=== PATIENT | female | born 1955 | race Caucasian/White ===

== ENCOUNTER → 2018-10-08 | Outpatient (CLI) | payer MEDICARE, OTHER ==
[~2018-10-08] MED LIST: ATOR10; ATOR40TA PO; CLIN150 PO; CLON.1TP TP; ESCI10; ESTR2; FLUO10 PO; LOSHYD; METF500 PO; METR500 PO; NALT50 PO; PROACE100 PO; PROM25S PR; RXPROM25S PR; SULTRIDS PO; TRIA80TC TOP; VENL75ER; ZOLP10 PO
== END | disposition home or self-care (01) ==
LOC: LAB SHORT 09:39 → LAB EV 09:39
DX: N39.0 Urinary tract infection, site not specified (principal)
CPT/HCPCS: 87077; 87086; 87186

== ENCOUNTER → 2019-03-22 | Outpatient (CLI) | payer MEDICARE, OTHER | END | disposition home or self-care (01) | LOC: LAB EV 10:22 → LAB SHORT 10:22 | DX: N39.0 Urinary tract infection, site not specified (principal) | CPT/HCPCS: 87077; 87086; 87186 ==

== ENCOUNTER → 2021-01-15 | Outpatient (CLI) | payer MEDICARE ==
[2021-01-15 07:52] LABS: Source, Urine Clean Catch
[2021-01-15 11:48] LABS: Appearance, Urine Cloudy (Clear); Bilirubin, Urine Neg (Neg); Blood, Urine 2+ (Neg); Color, Urine Yellow (P-Yellow); Glucose Qualitative, Urine Neg (Neg); Ketones, Urine Neg (Neg); Leukocyte Esterase, Urine 3+ (Neg); Nitrite, Urine Pos (Neg); Protein, Urine 2+ (Neg); Urobilinogen, Urine NORM (Normal)
[2021-01-15 12:18] LABS: Bacteria Many /hpf; Squamous Epithelial Cells Not Seen /hpf (Few); White Blood Cells, Urine TNTC /hpf (0-5)
== END | disposition home or self-care (01) ==
LOC: OLS 07:50 → LAB SHORT 07:50
PROVIDERS: Nurse Practitioner
DX: R35.0 Frequency of micturition (principal)
CPT/HCPCS: 81001; 87077; 87086; 87186

== ENCOUNTER → 2021-08-30 | Outpatient (CLI) | payer MEDICARE ==
[~2021-08-30] MED LIST changes: +ASPI81CH PO; +BUDESONIDE EC3 M5 PO; +CEFDINIR300 M4; +CHOLP PO; +CLOP75 PO; +DULO60 PO; +ESCI20 PO; +EUTHYROX25 MC1 PO; +GLUCOPHAGE1000 M1 PO; +IMODIUM A-D2 M4 PO; +IRBESARTAN150 M3 PO; +METFORMIN; +OMEP20ER PO
== END | disposition home or self-care (01) ==
LOC: LAB SHORT 11:59
DX: N39.0 Urinary tract infection, site not specified (principal)
CPT/HCPCS: 87077; 87086; 87186

== ENCOUNTER 2021-09-14 12:24 | Emergency (ER) | payer MEDICARE ==
[~2021-09-14] VITALS: Ht 162.6 cm; Wt 74.8 kg
[~2021-09-14 12:24] MED LIST changes: -ASPI81CH PO; -BUDESONIDE EC3 M5 PO; -CEFDINIR300 M4; -CHOLP PO; -CLOP75 PO; -DULO60 PO; -ESCI20 PO; -EUTHYROX25 MC1 PO; -GLUCOPHAGE1000 M1 PO; -IMODIUM A-D2 M4 PO; -IRBESARTAN150 M3 PO; -METFORMIN; -OMEP20ER PO
[2021-09-14 12:58] LABS: BASOPHILS ABSOLUTE AUTO 0.07 K/mm3 (0.00-0.23); BASOPHILS PERCENT AUTO 1 % (0-2); EOSINOPHILS ABSOLUTE AUTO 0.18 K/mm3 (0.00-0.68); EOSINOPHILS PERCENT AUTO 1 % (0-6); Hemoglobin 12.9 g/dL (11.5-16.0); IMMATURE GRAN ABSOLUTE AUTO 0.04 K/mm3 (0.00-0.10); IMMATURE GRAN PERCENT AUTO 0 % (0-1); LYMPHOCYTES ABSOLUTE AUTO 4.48 K/mm3 (0.84-5.20); LYMPHOCYTES PERCENT AUTO 35 % (21-46); MONOCYTES ABSOLUTE AUTO 0.68 K/mm3 (0.16-1.47); MONOCYTES PERCENT AUTO 5 % (4-13); Mean Corpuscular HGB 31.7 pg (26.0-34.0); Mean Corpuscular HGB Conc 33.1 g/dL (31.5-36.5); Mean Corpuscular Volume 96 fL (80-100); Mean Platelet Volume 10.4 fL (9.1-12.4); NEUTROPHILS ABSOLUTE AUTO 7.38 K/mm3 (1.96-9.15); NEUTROPHILS PERCENT AUTO 58 % (41-73); Platelet Count 322 K/mm3 (150-400); RDW Coefficient Variation 13.9 % (11.7-14.2); RDW Standard Deviation 49.1 fL (35.1-46.3); Red Blood Cell Count 4.07 M/mm3 (3.80-5.20); White Blood Cell Count 12.83 K/mm3 (4.00-11.30)
[2021-09-14 13:18] LABS: Alanine Aminotransfer (ALT/SGP 22 U/L (12-78); Albumin, Blood 3.2 g/dL (3.4-5.0); Albumin/Globulin Ratio 0.9 (0.8-1.8); Alk Phos 48 U/L (50-136); Anion Gap 5 mmol/L (6-16); Aspartate Aminotrans (AST/SGOT 12 U/L (12-37); Bilirubin, Total 0.2 mg/dL (0.1-1.0); Blood Urea Nitrogen 11 mg/dL (8-24); Bun/Creatinine Ratio 14.9 (12.0-20.0); CO2, Blood 27 mmol/L (21-32); Chloride, Blood 105 mmol/L (98-108); Creatinine, Blood 0.74 mg/dL (0.40-1.00); Globulin, Blood 3.5 g/dL (2.2-4.0); Glomerular Filtration Rate >60 (60-); Glucose, Blood 131 mg/dL (70-99); Potassium, Blood 4.2 mmol/L (3.5-5.5); Sodium, Blood 137 mmol/L (136-145); Total Protein, Blood 6.7 g/dL (6.4-8.2)
[2021-09-14 16:00] LABS: Troponin I <0.015 ng/mL (0.000-0.040)
[2021-09-15] MEDS ORDERED: BUDESONIDE EC3 M5 PO ×2 (00:36)
[2021-09-15] MEDS ORDERED: IRBESARTAN150 M3 PO ×2 (00:37)
[2021-09-15] MEDS ORDERED: GLUCOPHAGE1000 M1 PO ×2 (00:38)
[2021-09-15] MEDS ORDERED: METFORMIN (00:39)
[2021-09-15] MEDS ORDERED: CEFDINIR300 M4 (00:40)
[2021-09-15] MEDS ORDERED: EUTHYROX25 MC1 PO ×2 (00:41)
[2021-09-15] MEDS ORDERED: IMODIUM A-D2 M4 PO ×2 (00:42)
[2021-09-15] MEDS ORDERED: OMEP20ER PO ×3 (00:43→01:17)
[2021-09-15] MEDS ORDERED: ESCI20 PO ×2 (00:44)
[2021-09-15] MEDS ORDERED: DULO60 PO ×2 (01:22)
[2021-09-15] MEDS ORDERED: CHOLP PO ×2 (13:34)
[2021-09-15] MEDS ORDERED: ATOR40TA PO ×2 (15:17)
[2021-09-15] MEDS ORDERED: ASPI81CH PO ×2 (15:17)
[2021-09-15] MEDS ORDERED: CLOP75 PO ×2 (15:18)
== END 2021-09-14 16:55 | disposition home or self-care (01) ==
LOC: ER 12:24
PROVIDERS: Emergency Medicine
DX: G45.9 Transient cerebral ischemic attack, unspecified (principal); E11.9 Type 2 diabetes mellitus without complications; F17.200 Nicotine dependence, unspecified, uncomplicated
CPT/HCPCS: 36415; 70450; 80053; 81000; 82947; 84484; 85025; 93005; 93010; 99284-25; A9270

== ENCOUNTER 2021-09-14 20:43 | Observation (INO) | payer MEDICARE ==
[~2021-09-14] VITALS: Ht 162.6 cm; Wt 74.8 kg
[2021-09-14 22:45] LABS: Source, Urine Clean Catch
[2021-09-14 22:49] LABS: Bilirubin, Urine Neg (Neg); Blood, Urine Neg (Neg); Glucose Qualitative, Urine Neg (Neg); Ketones, Urine Neg (Neg); Leukocyte Esterase, Urine Neg (Neg); Nitrite, Urine Neg (Neg); Protein, Urine Neg (Neg); Urobilinogen, Urine NORM (Normal)
[2021-09-14 22:51] LABS: BASOPHILS PERCENT AUTO 1 % (0-2); EOSINOPHILS ABSOLUTE AUTO 0.24 K/mm3 (0.00-0.68); EOSINOPHILS PERCENT AUTO 2 % (0-6); Hematocrit 38.7 % (33.0-51.0); IMMATURE GRAN ABSOLUTE AUTO 0.04 K/mm3 (0.00-0.10); IMMATURE GRAN PERCENT AUTO 0 % (0-1); LYMPHOCYTES ABSOLUTE AUTO 6.09 K/mm3 (0.84-5.20); LYMPHOCYTES PERCENT AUTO 42 % (21-46); MONOCYTES ABSOLUTE AUTO 0.78 K/mm3 (0.16-1.47); MONOCYTES PERCENT AUTO 5 % (4-13); Mean Corpuscular HGB 31.7 pg (26.0-34.0); Mean Corpuscular HGB Conc 33.6 g/dL (31.5-36.5); Mean Corpuscular Volume 94 fL (80-100); Mean Platelet Volume 10.3 fL (9.1-12.4); NEUTROPHILS ABSOLUTE AUTO 7.41 K/mm3 (1.96-9.15); NEUTROPHILS PERCENT AUTO 51 % (41-73); Platelet Count 344 K/mm3 (150-400); RDW Standard Deviation 48.7 fL (35.1-46.3); White Blood Cell Count 14.66 K/mm3 (4.00-11.30)
[2021-09-14 22:54] LABS: Appearance, Urine Clear (Clear); Color, Urine Yellow (P-Yellow)
[2021-09-14 23:10] LABS: Alanine Aminotransfer (ALT/SGP 21 U/L (12-78); Albumin, Blood 3.3 g/dL (3.4-5.0); Albumin/Globulin Ratio 0.9 (0.8-1.8); Alk Phos 50 U/L (50-136); Anion Gap 7 mmol/L (6-16); Aspartate Aminotrans (AST/SGOT 14 U/L (12-37); Bilirubin, Total 0.1 mg/dL (0.1-1.0); Blood Urea Nitrogen 9 mg/dL (8-24); Bun/Creatinine Ratio 12.7 (12.0-20.0); CO2, Blood 26 mmol/L (21-32); Chloride, Blood 106 mmol/L (98-108); Creatinine, Blood 0.71 mg/dL (0.40-1.00); Globulin, Blood 3.8 g/dL (2.2-4.0); Glomerular Filtration Rate >60 (60-); Glucose, Blood 97 mg/dL (70-99); Potassium, Blood 4.1 mmol/L (3.5-5.5); Sodium, Blood 139 mmol/L (136-145); Total Protein, Blood 7.1 g/dL (6.4-8.2)
[2021-09-15 00:04] LABS: Free Thyroxine 0.93 ng/dL (0.70-1.60)
[2021-09-15] MEDS ORDERED: BUDESONIDE EC3 M5 PO ×2 (00:36)
[2021-09-15] MEDS ORDERED: IRBESARTAN150 M3 PO ×2 (00:37)
[2021-09-15] MEDS ORDERED: GLUCOPHAGE1000 M1 PO ×2 (00:38)
[2021-09-15] MEDS ORDERED: METFORMIN (00:39)
[2021-09-15] MEDS ORDERED: CEFDINIR300 M4 (00:40)
[2021-09-15] MEDS ORDERED: EUTHYROX25 MC1 PO ×2 (00:41)
[2021-09-15] MEDS ORDERED: IMODIUM A-D2 M4 PO ×2 (00:42)
[2021-09-15] MEDS ORDERED: OMEP20ER PO ×3 (00:43→01:17)
[2021-09-15] MEDS ORDERED: ESCI20 PO ×2 (00:44)
--- NOTE | 2021-09-15 01:03 | NUR ---
ADMIT NOTE PT ARRIVED FROM ED AT 0025. PT SEEN IN ED EARLIER YESTERDAY BUT LEFT AMA. WENT HOME, DRANK TWO GLASSES OF WINE AND A BEER, CAME BACK TO ED WITH DAUGHTER AND WAS ADMITTED FOR TIA. HAVING EPISODES OF DIZZINESS, BRAIN FOG, SPEECH DIFFICULTY. PT INDEPENDENT IN ROOM, TALKING IN FULL SENTENCES, EATING A SANDWHICH. PT TOOK PICTURES OF HER MEDICATIONS TO BRING TO THE HOSPITAL, WHICH IS WHAT HER MEDICATION LIST IS BASED OFF OF TONIGHT. CURRENT SMOKE, DENIES DRUGS. HX DM AND FACTOR V LEIDEN DISORDER. VSS
[2021-09-15] MEDS ORDERED: DULO60 PO ×2 (01:22)
[2021-09-15 04:57] LABS: BASOPHILS ABSOLUTE AUTO 0.08 K/mm3 (0.00-0.23); BASOPHILS PERCENT AUTO 1 % (0-2); EOSINOPHILS PERCENT AUTO 2 % (0-6); Hematocrit 40.1 % (33.0-51.0); Hemoglobin 12.8 g/dL (11.5-16.0); IMMATURE GRAN ABSOLUTE AUTO 0.02 K/mm3 (0.00-0.10); IMMATURE GRAN PERCENT AUTO 0 % (0-1); LYMPHOCYTES ABSOLUTE AUTO 6.23 K/mm3 (0.84-5.20); LYMPHOCYTES PERCENT AUTO 47 % (21-46); MONOCYTES ABSOLUTE AUTO 0.65 K/mm3 (0.16-1.47); MONOCYTES PERCENT AUTO 5 % (4-13); Mean Corpuscular HGB Conc 31.9 g/dL (31.5-36.5); Mean Corpuscular Volume 97 fL (80-100); Mean Platelet Volume 10.3 fL (9.1-12.4); NEUTROPHILS ABSOLUTE AUTO 5.87 K/mm3 (1.96-9.15); NEUTROPHILS PERCENT AUTO 45 % (41-73); Platelet Count 315 K/mm3 (150-400); RDW Coefficient Variation 14.2 % (11.7-14.2); RDW Standard Deviation 50.6 fL (35.1-46.3); Red Blood Cell Count 4.13 M/mm3 (3.80-5.20); White Blood Cell Count 13.15 K/mm3 (4.00-11.30)
[2021-09-15 05:26] LABS: Anion Gap 4 mmol/L (6-16); Blood Urea Nitrogen 13 mg/dL (8-24); Bun/Creatinine Ratio 16.2 (12.0-20.0); CO2, Blood 30 mmol/L (21-32); Calcium, Blood 9.2 mg/dL (8.5-10.1); Chloride, Blood 107 mmol/L (98-108); Glomerular Filtration Rate >60 (60-); Glucose, Blood 123 mg/dL (70-99); Potassium, Blood 4.6 mmol/L (3.5-5.5); Sodium, Blood 141 mmol/L (136-145)
[2021-09-15 05:34] LABS: CHOL/HDL RATIO 6.2; Cholesterol 254 mg/dL (50-200); HDL Cholesterol 41 mg/dL (>39); LDL/HDL RATIO 4.2; Low Density Lipoprotein Chol 171 mg/dL (0-110); Triglycerides 212 mg/dL (30-160); Very Low Density Lipoprot Chol 42 mg/dL (6-32)
[2021-09-15 11:20] LABS: Source, Urine Clean Catch
[2021-09-15 11:27] LABS: Appearance, Urine Clear (Clear); Bilirubin, Urine Neg (Neg); Blood, Urine Neg (Neg); Color, Urine Yellow (P-Yellow); Glucose Qualitative, Urine Neg (Neg); Ketones, Urine Neg (Neg); Leukocyte Esterase, Urine Neg (Neg); Nitrite, Urine Neg (Neg); Protein, Urine Neg (Neg); Specific Gravity, Urine 1.005 (1.003-1.022); Urobilinogen, Urine NORM (Normal); pH, Urine 6.5 (5.0-8.0)
[2021-09-15] MEDS ORDERED: CHOLP PO ×2 (13:34)
[2021-09-15] MEDS ORDERED: ASPI81CH PO ×2 (15:17)
[2021-09-15] MEDS ORDERED: ATOR40TA PO ×2 (15:17)
[2021-09-15] MEDS ORDERED: CLOP75 PO ×2 (15:18)
--- NOTE | 2021-09-15 16:12 | NUR ---
Patient was alert and orient. She was excited to discharge today. RN reviewed discharge instructions, medication list, and education (new meds, stroke prevention, and heart healthy eating plan). RN removed patient PIV, and she was discharged and taken off of the unit at 1600.
== END 2021-09-15 16:43 | disposition home or self-care (01) ==
LOC: ER 20:43 → MEDS 20:44
PROVIDERS: Family Medicine; Internal Medicine; Physician Assistant; ADMIT Family Medicine
DX: G45.9 Transient cerebral ischemic attack, unspecified (principal); R47.89 Other speech disturbances; G31.84 Mild cognitive impairment of uncertain or unknown etiology; I65.23 Occlusion and stenosis of bilateral carotid arteries; I89.0 Lymphedema, not elsewhere classified; D72.829 Elevated white blood cell count, unspecified; E11.9 Type 2 diabetes mellitus without complications; I10 Essential (primary) hypertension; E03.9 Hypothyroidism, unspecified; F17.210 Nicotine dependence, cigarettes, uncomplicated; D68.51 Activated protein C resistance; Z85.41 Personal history of malignant neoplasm of cervix uteri; Z87.440 Personal history of urinary (tract) infections; Z79.84 Long term (current) use of oral hypoglycemic drugs
CPT/HCPCS: 36415; 71045; 71260; 80048; 80053; 80061; 81003; 82607; 82746; 82947; 83036; 84145; 84439; 84443; 85025; 85379; 93306; 93880; 93971; 99285-25; A9270; G0378; J1650; Q9967

== ENCOUNTER → 2021-10-24 | Outpatient (CLI) | payer MEDICARE ==
[~2021-10-24] MED LIST changes: +ASPI81CH PO; +BUDESONIDE EC3 M5 PO; +CEFDINIR300 M4; +CHOLP PO; +CLOP75 PO; +DULO60 PO; +ESCI20 PO; +EUTHYROX25 MC1 PO; +GLUCOPHAGE1000 M1 PO; +IMODIUM A-D2 M4 PO; +IRBESARTAN150 M3 PO; +METFORMIN; +OMEP20ER PO
== END | disposition home or self-care (01) ==
LOC: LAB SHORT 10:05 → LAB 10:05
DX: N39.0 Urinary tract infection, site not specified (principal)
CPT/HCPCS: 87077; 87086; 87186

== ENCOUNTER → 2022-01-18 | Outpatient (CLI) | payer MEDICARE | END | disposition home or self-care (01) | LOC: LAB 11:58 → LAB SHORT 11:58 | DX: N39.0 Urinary tract infection, site not specified (principal) | CPT/HCPCS: 87077; 87086; 87186 ==

== ENCOUNTER → 2022-04-24 | Outpatient (CLI) | payer MEDICARE | END | disposition home or self-care (01) | LOC: LAB SHORT 08:17 → LAB 08:17 | DX: N39.0 Urinary tract infection, site not specified (principal) | CPT/HCPCS: 87077; 87086; 87186 ==

== ENCOUNTER → 2022-05-30 | Outpatient (CLI) | payer MEDICARE | LOC: LAB SHORT 14:12 → LAB 14:12 | DX: N39.0 Urinary tract infection, site not specified (principal) | CPT/HCPCS: 87086 ==

== ENCOUNTER 2022-06-29 11:35 | Emergency (ER) | payer MEDICARE ==
[~2022-06-29] VITALS: Ht 162.6 cm; Wt 70.3 kg
[2022-06-29 12:19] LABS: BASOPHILS ABSOLUTE AUTO 0.07 K/mm3 (0.00-0.23); BASOPHILS PERCENT AUTO 1 % (0-2); EOSINOPHILS ABSOLUTE AUTO 0.18 K/mm3 (0.00-0.68); EOSINOPHILS PERCENT AUTO 1 % (0-6); Hematocrit 37.9 % (33.0-51.0); Hemoglobin 12.5 g/dL (11.5-16.0); IMMATURE GRAN ABSOLUTE AUTO 0.04 K/mm3 (0.00-0.10); IMMATURE GRAN PERCENT AUTO 0 % (0-1); LYMPHOCYTES ABSOLUTE AUTO 3.38 K/mm3 (0.84-5.20); LYMPHOCYTES PERCENT AUTO 25 % (21-46); MONOCYTES ABSOLUTE AUTO 0.53 K/mm3 (0.16-1.47); MONOCYTES PERCENT AUTO 4 % (4-13); Mean Corpuscular HGB 31.3 pg (26.0-34.0); Mean Corpuscular Volume 95 fL (80-100); Mean Platelet Volume 10.3 fL (9.1-12.4); NEUTROPHILS ABSOLUTE AUTO 9.61 K/mm3 (1.96-9.15); NEUTROPHILS PERCENT AUTO 70 % (41-73); Platelet Count 311 K/mm3 (150-400); RDW Coefficient Variation 14.2 % (11.7-14.2); RDW Standard Deviation 49.6 fL (35.1-46.3); Red Blood Cell Count 3.99 M/mm3 (3.80-5.20); White Blood Cell Count 13.81 K/mm3 (4.00-11.30)
[2022-06-29 12:35] LABS: Albumin, Blood 3.3 g/dL (3.4-5.0); Bilirubin, Total 0.2 mg/dL (0.1-1.0); Bun/Creatinine Ratio 12.3 (12.0-20.0); Calcium, Blood 8.8 mg/dL (8.5-10.1); Creatinine, Blood 0.65 mg/dL (0.40-1.00); Globulin, Blood 3.4 g/dL (2.2-4.0); Potassium, Blood 4.2 mmol/L (3.5-5.5); Total Protein, Blood 6.7 g/dL (6.4-8.2)
== END 2022-06-29 17:46 | disposition home or self-care (01) ==
LOC: ER 11:35
PROVIDERS: Physician Assistant
DX: R41.0 Disorientation, unspecified (principal); Z88.8 Allergy status to other drugs, medicaments and biological substances; Z79.899 Other long term (current) drug therapy; Z79.84 Long term (current) use of oral hypoglycemic drugs; Z79.82 Long term (current) use of aspirin; E11.9 Type 2 diabetes mellitus without complications; E03.9 Hypothyroidism, unspecified; F17.200 Nicotine dependence, unspecified, uncomplicated
CPT/HCPCS: 36415; 70450; 70496; 70498; 70551; 80053; 82947; 85025; 93005; 93010; A9270; Q9967

== ENCOUNTER → 2024-06-15 | Outpatient (CLI) | payer MEDICARE | LOC: LAB SHORT 11:19 → LAB 11:19 | DX: N39.0 Urinary tract infection, site not specified (principal) | CPT/HCPCS: 87077; 87086; 87186 ==

== ENCOUNTER 2025-01-06 18:41 | Observation (INO) | payer MEDICARE ==
[~2025-01-06] VITALS: Ht 162.6 cm; Wt 63.5 kg
[2025-01-06] MEDS ORDERED: Mag Sulfate 1 GM/D5% 100ML 100 ML IV ONE (19:15)
[2025-01-06] MEDS ORDERED: NS 1,000 ML IV SCH (19:15)
[2025-01-06] MEDS ORDERED: NS 500 ML IV SCH (19:15)
[2025-01-06] MEDS ORDERED: Diphth,Pertuss(Acell),Tet Vac 0.5 ML VIAL IM ONE (19:20)
[2025-01-06 20:00] LABS: BASOPHILS ABSOLUTE AUTO 0.04 K/mm3 (0.00-0.23); BASOPHILS PERCENT AUTO 0 % (0-2); EOSINOPHILS ABSOLUTE AUTO 0.18 K/mm3 (0.00-0.68); EOSINOPHILS PERCENT AUTO 2 % (0-6); Hematocrit 33.6 % (33.0-51.0); Hemoglobin 11.4 g/dL (11.5-16.0); IMMATURE GRAN ABSOLUTE AUTO 0.04 K/mm3 (0.00-0.10); IMMATURE GRAN PERCENT AUTO 0 % (0-1); LYMPHOCYTES ABSOLUTE AUTO 4.88 K/mm3 (0.84-5.20); LYMPHOCYTES PERCENT AUTO 52 % (21-46); MONOCYTES ABSOLUTE AUTO 0.48 K/mm3 (0.16-1.47); MONOCYTES PERCENT AUTO 5 % (4-13); Mean Corpuscular HGB 33.2 pg (26.0-34.0); Mean Corpuscular HGB Conc 33.9 g/dL (31.5-36.5); Mean Corpuscular Volume 98 fL (80-100); Mean Platelet Volume 10.9 fL (9.1-12.4); NEUTROPHILS ABSOLUTE AUTO 3.83 K/mm3 (1.96-9.15); NEUTROPHILS PERCENT AUTO 41 % (41-73); Platelet Count 238 K/mm3 (150-400); RDW Coefficient Variation 13.2 % (11.7-14.2); RDW Standard Deviation 47.1 fL (35.1-46.3); Red Blood Cell Count 3.43 M/mm3 (3.80-5.20); White Blood Cell Count 9.45 K/mm3 (4.00-11.30)
[2025-01-06 20:17] LABS: Free Thyroxine 0.96 ng/dL (0.70-1.60); Magnesium, Blood 1.3 mg/dL (1.6-2.4)
[2025-01-06 20:47] LABS: Bun/Creatinine Ratio 15.4 (12.0-20.0); Calcium, Blood 8.7 mg/dL (8.5-10.1); Creatinine, Blood 0.59 mg/dL (0.40-1.00); Potassium, Blood 3.2 mmol/L (3.5-5.5); Thyroid Stimulating Hormone 5.26 uIU/mL (0.360-4.800)
[2025-01-06 21:17] LABS: Source, Urine Clean Catch
[2025-01-06 21:22] LABS: Appearance, Urine Clear (Clear); Bilirubin, Urine Neg (Neg); Blood, Urine Neg (Neg); Color, Urine Yellow (P-Yellow); Glucose Qualitative, Urine Neg (Neg); Ketones, Urine Neg (Neg); Leukocyte Esterase, Urine Neg (Neg); Nitrite, Urine Neg (Neg); Protein, Urine 1+ (Neg); Urobilinogen, Urine NORM (Normal)
[2025-01-06] MEDS ORDERED: TRAZ50 (21:56)
[2025-01-06] MEDS ORDERED: COLESTIPOL HCL1 G1 PO (21:56)
[2025-01-06] MEDS ORDERED: NS 1,000 ML IV ONE (22:55)
[2025-01-06] MEDS ORDERED: Ondansetron HCl 2 MG / ML 2ML Vial IV PRN (22:55)
[2025-01-06] MEDS ORDERED: Potassium Chloride 40 MEQ in NS 250 ML IV ONE (23:00)
[2025-01-06] MEDS ORDERED: Magnesium Sulf 2 GM/Water 50ML 50 ML IV ONE (23:00)
[2025-01-06] MEDS ORDERED: DULO60 PO (23:46)
[2025-01-06] MEDS ORDERED: GABA300 PO (23:48)
[2025-01-06] MEDS ORDERED: ROSUVASTATIN CA10 MG PO (23:49)
[2025-01-06 23:58] VITALS: BP 112/68
--- NOTE | 2025-01-07 01:14 | NUR ---
TRANSFER NOTE: PT AOX4 ABLE TO AMBULATE FROM GURNEY TO BED WITHOUT ISSUE. PT IS AGITATED AND PARNOID/ ANXIOUS ABOUT ADMISSION QUESTIONS AND CAR. REFUSED SKIN CHECK AND OTHER ASPECTS OF CARE. PT IS SHORT WITH STAFF BUT OVERALL COMPLIANT. IN BED RESTING. ORIENTED TO ROOM AND CALL LIGHT. CALLS APPROPRIATELY AND ABLE TO MAKE NEEDS KNOWN. BED IN LOWEST POSITION, CALL LIGHT IN REACH. CONTINUING CARE.
[2025-01-07 04:27] VITALS: BP 108/60
--- NOTE | 2025-01-07 05:12 | NUR ---
SHIFT SUMMARY: PT AOX4 SBA IN THE ROOM, MANAGING LINES AND SOME R KNEE PAIN. PT CALLS APPROPRIATELY AND IS ABLE TO MAKE NEEDS KNOWN. PT IS VERY IRRITABLE AND ANXIOUS/ PARANOID WITH ASPECTS OF CARE AND ANY ADMISSION QUESTIONS. TOLERATING MEDICATIONS WELL. NO ACUTE EVENTS OVERNIGHT. PT IN BED SLEEPING, BED IN LOWEST POSITION, CALL LIGHT IN REACH. CONTINUING CARE.
[2025-01-07 05:56] LABS: BASOPHILS ABSOLUTE AUTO 0.05 K/mm3 (0.00-0.23); BASOPHILS PERCENT AUTO 1 % (0-2); EOSINOPHILS ABSOLUTE AUTO 0.29 K/mm3 (0.00-0.68); EOSINOPHILS PERCENT AUTO 3 % (0-6); Hematocrit 34.6 % (33.0-51.0); Hemoglobin 11.7 g/dL (11.5-16.0); IMMATURE GRAN ABSOLUTE AUTO 0.03 K/mm3 (0.00-0.10); IMMATURE GRAN PERCENT AUTO 0 % (0-1); LYMPHOCYTES ABSOLUTE AUTO 3.88 K/mm3 (0.84-5.20); LYMPHOCYTES PERCENT AUTO 36 % (21-46); MONOCYTES ABSOLUTE AUTO 0.54 K/mm3 (0.16-1.47); MONOCYTES PERCENT AUTO 5 % (4-13); Mean Corpuscular HGB 33.6 pg (26.0-34.0); Mean Corpuscular HGB Conc 33.8 g/dL (31.5-36.5); Mean Corpuscular Volume 99 fL (80-100); Mean Platelet Volume 10.7 fL (9.1-12.4); NEUTROPHILS ABSOLUTE AUTO 5.92 K/mm3 (1.96-9.15); NEUTROPHILS PERCENT AUTO 55 % (41-73); Platelet Count 245 K/mm3 (150-400); RDW Coefficient Variation 13.2 % (11.7-14.2); RDW Standard Deviation 47.6 fL (35.1-46.3); Red Blood Cell Count 3.48 M/mm3 (3.80-5.20); White Blood Cell Count 10.71 K/mm3 (4.00-11.30)
[2025-01-07 06:24] LABS: Albumin/Globulin Ratio 1.2 (0.8-1.8); Bilirubin, Total 0.4 mg/dL (0.1-1.0); Bun/Creatinine Ratio 11.6 (12.0-20.0); Calcium, Blood 8.4 mg/dL (8.5-10.1); Creatinine, Blood 0.6 mg/dL (0.40-1.00); Globulin, Blood 2.5 g/dL (2.2-4.0); Potassium, Blood 4.2 mmol/L (3.5-5.5); Total Protein, Blood 5.5 g/dL (6.4-8.2)
[2025-01-07 07:38] VITALS: BP 126/80
[2025-01-07] MEDS ORDERED: Polyethylene Glycol 3350 17 gm PO PRN (07:50)
[2025-01-07] MEDS ORDERED: OxyCODONE HCL 5 MG TAB PO PRN (07:50)
[2025-01-07] MEDS ORDERED: Prochlorperazine Maleate 5 MG Tab PO PRN (07:50)
[2025-01-07] MEDS ORDERED: Docusate Sodium/Senna 1 Tab PO PRN (07:50)
[2025-01-07] MEDS ORDERED: TraZODone HCl 50 MG Tab PO PRN (07:55)
[2025-01-07] MEDS ORDERED: DULoxetine HCL 60 MG Capsule DR PO SCH (09:00)
[2025-01-07] MEDS ORDERED: Citalopram Hydrobromide 20 MG Tab PO SCH (09:00)
--- NOTE | 2025-01-07 10:09 | NUR ---
1000- VERBAL FROM MD SAAVEDRA TO JALEESA ORDONEZ UA ORDER. UA ALREADY COLLECTED IN ER 01/06/25 AT 2101.
[2025-01-07] MEDS ORDERED: Magnesium Sulf 2 GM/Water 50ML 50 ML IV ONE (10:20)
[2025-01-07] MEDS ORDERED: Amoxicillin500 MG PO (10:44)
[2025-01-07] MEDS ORDERED: Artificial Tear Opth Oint 3.5 GM BOTHEYES PRN (11:10)
[2025-01-07] MEDS ORDERED: Amoxicillin 875 MG Tab PO SCH (11:30)
[2025-01-07 11:41] LABS: Free Thyroxine 0.91 ng/dL (0.70-1.60)
--- NOTE | 2025-01-07 11:51 | NUR ---
Rafael SAAVEDRA SPOKE WITH PT & PT'S SISTER ON SPEAKER PHONE AND THIS RN IN ROOM FOR 15 MINUTES UPDATING FAMILY/PT ON PLAN AND TESTING RESULTS. ALL PARITES AGREED ON PLAN THUS FAR.
--- NOTE | 2025-01-07 11:53 | NUR ---
1115- PT'S DAUGHTER IS REQUESTING PT BE TRANSFERRED TO [facility]. WHEN PT WAS ASKED IF SHE WOULD ALSO LIKE TO BE TRANSFERRED, PT LOOKED AT DAUGHTER AND STATED, "YES." THIS RN ASKED WHY PT WANTED TO BE TRANSFERRED AND PT'S DAUGHTER ANSWERED, "BECAUSE THINGS AND NOT BEING DONE NEARLY FAST ENOUGH HERE AND MY MOM NEEDS A HIGHER LEVEL OF CARE." THIS RN INFORMED PT AND DAUGHTER THE PROTOCOL FOR COBRA TRANSFERS AND THE REQUIREMENT OF AN ACCEPTING MD AND THE NEED FOR THE PT TO HAVE A NECESSITY OF CARE THAT CANNOT BE PROVIDED AT THIS HOSPITAL. THIS RN ASKED PT WHAT ELSE CAN BE DONE TO BE MORE ACCOMODATING. PT DID NOT RESPOND. PT'S DAUGHTER STATED, "SHE NEEDS TO BE TRANSFERRED SO SHE CAN BE WATCHED MORE CLOSELY. I WANT TO SPEAK WITH THE DOCTOR." MD SAAVEDRA CONTACTED AND INFORMED OF PT'S DAUGHTER'S REQUEST. RN ASKED PT AGAIN IF SHE WOULD LIKE TO BE TRANSFERRED AND PT ANSWERED, "YES." CHARGE NURSE JUDITH PEÑA NOTIFIED. BRY TAMEZ, DIRECTOR NOTIFIED. WHEN THIS RN WAS OUTSIDE OF PT'S ROOM AND HEADING BACK INTO ROOM 325, PT'S DAUGHTER, RASHEL, STOPPED THIS RN ALONE IN THE HALLWAY AND STATED, "I AM THE PT'S POA, AND YOU CAN START ASKING ME ALL THE QUESTIONS AND NOT MY MOTHER. I AM MAKING HER MEDICAL DECISIONS. SHE IS CONFUSED AND NOT ALL THERE." THIS RN RESPONDED, "WHEN I PERFORMED YOUR MOM'S ASSESSMENT THIS MORNING, YOUR MOM WAS AAOX4 AND SHE IS ABLE TO MAKE HER OWN DECISIONS RIGHT NOW, SO I WILL BE ASKING MY PATIENT ANY INFORMATION I NEED." THIS RN INFORMED RASHEL THAT IF THE PATIENT WOULD LIKE HER TO HAVE ANY INFORMATION, THAT IS FINE, SO LONG THE PT AGRRES TO DAUGHTER BEING INVOLVED IN DECISION MAKING.
--- NOTE | 2025-01-07 12:03 | NUR ---
1145- COMPLETED MRI SCREENING FORM SENT TO IMAGING.
--- NOTE | 2025-01-07 12:05 | NUR ---
1130- PT REQUESTED TO SPEAK WITH PT ADVOCATE. ERIC PT ADVOCATE CONTACTED AND ERIC STATED SHE WILL COME SEE PT IN ROOM 325 SHELIA.
--- NOTE | 2025-01-07 12:33 | NUR ---
THIS CHARGE NURSE WAS NOTIFIED BY DR SAAVEDRA THAT THE PATIENT'S SISTER WAS ASKING THAT THE PATIENT BE TRANSFERRED TO "HIGHER LEVEL OF CARE." AT APPROXIMATELY 1130 THE PRIMARY NURSE APPROACHED THIS NURSE AND STATED THAT THE FAMILY IS REQUESTING THE TRANSFER TO HIGHER LEVEL OF CARE DESPITE EDUCATION THAT DR SAAVEDRA HAS NOT ORDERED THAT AT THAT TIME. RASHEL, PTS DAUGHTER WAS REQUESTING ALSO TO SPEAK WITH PATIENT ADVOCATE AND PRESENT IN THE ROOM AT THAT TIME. THIS NURSE IMMEDIATELY WENT TO SPEAK WITH PATIENT ADVOCATE. PATIENT ADVOCATE DIRECTED THIS NURSE TO GO SPEAK WITH DIRECTOR, BRY AT 1135. AT ABOUT 1140 THIS NURSE WENT BACK TO [facility]SE [facility] OUTSIDE ROOM 325 TO SPEAK WITH JAYY PRIMARY NURSE. DR SAAVEDRA ALSO PRESENT AT THAT TIME. THIS NURSE WENT IN ROOM WITH DR SAAVEDRA TO DISCUSS PATIENT CONDITION WITH PATIENT AND FAMILY. PT'S DAUGHTER RASHEL IN ROOM AND PT'S SISTER BIJU WAS ON SPEAKER PHONE. DR SAAVEDRA DISCUSSED CURRENT RESULTS AND PENDING EXAMS. PT'S DAUGHTER AND SISTER CONTINUE TO REQUEST "TRANSFER TO HIGHER LEVEL OF CARE." AND ASKED DR SAAVEDRA TO "AMMEND HER NOTES SO THAT A TRANSFER IS INDICATED." SEE DR SAAVEDRA NOTE. THIS NURSE AND DR SAAVEDRA OUT OF ROOM BY 1200 AND PATIENT ADVOCATE IN ROOM DIRECTLY AFTER. COBRA ORDER TO BE PLACED ONCE THERE IS AN ACCEPTING FACILITY.
[2025-01-07] MEDS ORDERED: Enoxaparin 30 MG/0.3 ML SYR SC SCH (13:00)
--- NOTE | 2025-01-07 15:16 | NUR ---
ASSUMED CARE AT 1400. RECEIVED REPORT FROM CARLINE RUEDA.
--- NOTE | 2025-01-07 15:18 | NUR ---
1400- REPORT GIVEN TO CHUCK OLIVO. ALL QUESTIONS ANSWERED. CHUCK MENDOZA NOW PT'S NURSE PER PT'S DAUGHTER'S REQUEST.
--- NOTE | 2025-01-07 16:10 | NUR ---
1120- THIS RN WENT INTO PT'S ROOM TO DISCUSS OPTIONS FOR PT REGARDING WISHES TO BE TRANSFERRED TO ANOTHER HOSPITAL. THIS RN STATED AGAIN THE REQUIREMENTS FOR A COBRA TRANSFER. THIS RN THEN STATED THAT PT WAS ABLE TO LEAVE AGAINST MEDICAL ADVICE WELL IF PT WANTED TO LEAVE RIGHT NOW. THIS RN EXPLAINED THAT THE DAUGHTER COULD DRIVE THE PT UP TO [facility] IF SHE WISHED TO LEAVE IMMEDIATELY. PT AND DAUGHTER BOTH AGREED THAT THEY DIDN'T WANT TO LEAVE AMA.
[2025-01-07 16:17] VITALS: BP 103/68
[2025-01-07] MEDS ORDERED: Insulin Human Lispro 100 Units/ML 3ML Syringe SC SCH (16:30)
--- NOTE | 2025-01-07 18:02 | NUR ---
SHIFT SUMMARY PATIENT ALERT AND ORIENTED 3-4. NO ACUTE CHANGE SINCE THIS STUDENT ASSUMED CARE. AGITATED BUT COMPLIANT AND MAKE UNPLEASANT REMARKS. PATIENT INDEPENDENT IN THE ROOM, MAKE NEEDS KNOWN. CALL LIGHT WITHIN REACH AND BED IN LOWEST POSITION.
--- NOTE | 2025-01-07 18:16 | NUR ---
STUDENT NURSE DOCUMENTATION THIS NURSE WORKED [id number] WITH THE STUDENT NURSE THE ENTIRE SHIFT. THIS NURSE AGREES WITH ALL OF HER DOCUMENTATION.
[2025-01-07 20:01] VITALS: BP 109/71
[2025-01-07] MEDS ORDERED: Gabapentin 300 MG Cap PO SCH (21:00)
[2025-01-08 00:19] VITALS: BP 103/62
[2025-01-08 04:50] VITALS: BP 138/77
--- NOTE | 2025-01-08 04:59 | NUR ---
SHIFT SUMMARY PATIENT ALERT ORIENT X4, SLEPT ALL NIGHT DEMANDED FOR HER PAIN MED, GIVEN PER EMAR, OTHER MEDS WHERE SERVED, CALL LIGHT ANSWERED,BED LOWEST POSITION, CALL IN REACH.
[2025-01-08 05:36] LABS: Hematocrit 35.7 % (33.0-51.0); Hemoglobin 11.5 g/dL (11.5-16.0); Mean Corpuscular HGB 32.5 pg (26.0-34.0); Mean Corpuscular HGB Conc 32.2 g/dL (31.5-36.5); Mean Corpuscular Volume 101 fL (80-100); Mean Platelet Volume 10.8 fL (9.1-12.4); Platelet Count 226 K/mm3 (150-400); RDW Coefficient Variation 13.2 % (11.7-14.2); RDW Standard Deviation 48.9 fL (35.1-46.3); Red Blood Cell Count 3.54 M/mm3 (3.80-5.20); White Blood Cell Count 9.08 K/mm3 (4.00-11.30)
[2025-01-08] MEDS ORDERED: Levothyroxine Sodium 0.025 MG Tab PO SCH (06:00)
[2025-01-08 06:06] LABS: Bun/Creatinine Ratio 12.7 (12.0-20.0); Calcium, Blood 9.3 mg/dL (8.5-10.1); Creatinine, Blood 0.63 mg/dL (0.40-1.00); Magnesium, Blood 2.1 mg/dL (1.6-2.4); Potassium, Blood 4.6 mmol/L (3.5-5.5)
[2025-01-08] MEDS ORDERED: Atorvastatin 10 MG Tab PO SCH (09:00)
[2025-01-08] MEDS ORDERED: Clopidogrel Bisulfate 75 MG Tab PO SCH (09:00)
[2025-01-08] MEDS ORDERED: Aspirin 81 MG Chew PO SCH (09:00)
[2025-01-08] MEDS ORDERED: Citalopram Hydrobromide 20 MG Tab PO SCH (09:00)
--- NOTE | 2025-01-08 13:30 | NUR ---
PT DISCHARED AT 1315 WITH FAMILY TO TRANSPORT HOME. PT HAD PACKET REVIEWED AND EDUCATIONAL MATERIAL SENT WITH PT. PT INDEPENDENT AOX4 AND COOPERATIVE OF CARE. ESCORTED OUT TO S ENTRANCE VIA WHEELCHAIR ALL PERSONAL BELONGINGS COLLECTED AND TAKEN WITH PT. NO DISTRESS NOTED.
== END 2025-01-08 13:25 | disposition home or self-care (01) ==
LOC: ER 18:41 → MEDS 18:42
PROVIDERS: Emergency Medicine; Hospitalist; ADMIT Internal Medicine
DX: E27.40 Unspecified adrenocortical insufficiency (principal); E87.6 Hypokalemia; E86.0 Dehydration; E83.42 Hypomagnesemia; M17.11 Unilateral primary osteoarthritis, right knee; E11.9 Type 2 diabetes mellitus without complications; G31.84 Mild cognitive impairment of uncertain or unknown etiology; I10 Essential (primary) hypertension; E03.9 Hypothyroidism, unspecified; D68.51 Activated protein C resistance; L40.9 Psoriasis, unspecified; F17.210 Nicotine dependence, cigarettes, uncomplicated; Z79.84 Long term (current) use of oral hypoglycemic drugs; Z88.8 Allergy status to other drugs, medicaments and biological substances; W10.2XXA Fall (on)(from) incline, initial encounter
CPT/HCPCS: 36415; 70450; 70551; 71045; 71260; 73562-RT; 76830; 80048; 80053; 82533; 82607; 82947; 83036; 83735; 83880; 84439; 84443; 85025; 85027; 85379; 90471; 90715; 93005; 93010; 93306; 93880; 93971; 96365; 96366; 96372; 96375; 96376; 99285-25; A9270; G0378; J1650; J3475; J3480; J7030; J7050; Q9967